=== PATIENT | male | born 1990 | race African-American/Black ===

== ENCOUNTER 2021-11-16 12:57 | Emergency (ER) | payer OTHER ==
[~2021-11-16] VITALS: Ht 162.6 cm; Wt 63.0 kg
[2021-11-16 13:05] VITALS: BP 110/64
[2021-11-16 17:46] LABS: CLARITY URINE CLEAR (CLEAR); COLOR URINE YELLOW (YELLOW); KETONES URINE NEGATIVE (NEGATIVE); LEUKOCYTE ESTERASE URINE NEGATIVE (NEGATIVE); NITRITE URINE NEGATIVE (NEGATIVE); OCCULT BLOOD URINE NEGATIVE (NEGATIVE); PH URINE 6.5 (4.5-8.0); PROTEIN URINE NEGATIVE (NEGATIVE); SPECIFIC GRAVITY URINE 1.019 (1.005-1.030); UROBILINOGEN URINE 0.2 E.U./dL (0.2-1.0)
[2021-11-16] MEDS ORDERED: DOXY100C5 MT (18:05)
[2021-11-16] MEDS ORDERED: LIDOCAINE HCL 1% 20ML VIAL (Pyxis) INJ INFIL ONE (18:15)
[2021-11-16] MEDS ORDERED: CEFTRIAXONE SODIUM 250 MG/VIAL IM ONE (18:15)
[2021-11-16] MEDS ORDERED: LIDOCAINE HCL 1% 10 MG/ML 10ML VIAL IJ NR (18:45)
== END 2021-11-16 18:50 | disposition home or self-care (01) ==
LOC: ER 12:57
DX: M25.511 Pain in right shoulder (principal); N45.1 Epididymitis; Z98.890 Other specified postprocedural states
CPT/HCPCS: 73030; 76870; 81003; 93976; 96372; 99285; J0696; J3490; Z7610